=== PATIENT | female | born 1935 ===

== ENCOUNTER 2018-10-03 21:49 | Inpatient (IN) ==
[2018-10-03] MEDS ORDERED: ONDANSETRON 4 MG/2 ML VIAL ONE (22:21)
[2018-10-03] MEDS ORDERED: LORazepam 2 MG/1 ML VIAL IV STA (23:06)
[2018-10-03 23:19] LABS: Basophils # 0.1 10*3/uL (0.0-0.2); Basophils % 0.5 % (0.0-0.8); Eosinophils # 0.1 10*3/uL (0.0-0.87); Eosinophils % 0.6 % (0.00-10.9); Hematocrit 33.4 VOL% (35.7-47.0); Hemoglobin 11.1 GM/DL (12.0-16.0); Immature Granulocytes % 0.8 %; Immature Granulocytes Absolute 0.08 #; Lymphocytes # 2.6 10*3/uL (1.4-4.0); Mean Corpuscular HGB Conc 33.2 GM/DL (32-36); Mean Corpuscular Volume 87.9 FL (87-102); Mean Platelet Volume 9.1 FL (9.6-12.0); Monocytes % 14.9 % (1.7-12.7); Neutrophils % 56.2 % (38.7-73.9); Platelet Count 342 T/CUMM (130-400); Red Cell Distribution Width 12.5 % (9.3-17.3); White Blood Count 9.8 T/CUMM (4-12)
[2018-10-03 23:33] LABS: PT Patient Result 11.3 SECS; Partial Thromboplastin Time 24.5 SECS (0-40)
[2018-10-03 23:42] LABS: Albumin 3.6 G/DL (3.4-5.0); Bilirubin,Total 0.9 MG/DL (0.2-1.0); Calcium 8.8 MG/DL (8.5-10.1); Osmolality,Calculated 240.3 MOS/KG (273-304); Total Protein 7.9 G/DL (6.4-8.3)
[2018-10-03] MEDS ORDERED: MAGNESIUM SULF RIDER 2 GM in PREMIX 1 EACH IV STA (23:50)
[2018-10-04] MEDS ORDERED: HYDROCORTISONE 100 MG VIAL IV STA (00:36)
[2018-10-04] MEDS ORDERED: PIPERACILLIN/TAZOBACTAM 3,375 MG in SODIUM CHLORIDE 0.9% 100 ML IV STA (00:37)
[2018-10-04] MEDS ORDERED: HYDROmorphone 2 MG/1 ML VIAL ONE (02:15)
[2018-10-04] MEDS ORDERED: ONDANSETRON 4 MG/2 ML VIAL ONE (02:15)
[2018-10-04] MEDS ORDERED: ONDANSETRON 4 MG/2 ML VIAL IV ONE (02:37)
[2018-10-04] MEDS ORDERED: HYDROmorphone 2 MG/1 ML VIAL IV STA (02:39)
[2018-10-04] MEDS ORDERED: LACTULOSE 20 GM/30 ML UDCUP PO PRN (03:46)
[2018-10-04] MEDS ORDERED: MORPHINE 4 MG/1 ML VIAL IV PRN (03:46)
[2018-10-04] MEDS: SODIUM CHLORIDE 0.9% 1,000 ML IV SCH ×4 (06:05→21:02)
[2018-10-04 06:25] LABS: Basophils % 0.3 % (0.0-0.8); Eosinophils % 0.3 % (0.00-10.9); Hematocrit 31.3 VOL% (35.7-47.0); Hemoglobin 10.7 GM/DL (12.0-16.0); Immature Granulocytes % 0.8 %; Immature Granulocytes Absolute 0.06 #; Lymphocytes % 14.1 % (21.3-54.2); Mean Corpuscular HGB Conc 34.2 GM/DL (32-36); Mean Corpuscular Volume 86.2 FL (87-102); Mean Platelet Volume 9.8 FL (9.6-12.0); Monocytes % 7.7 % (1.7-12.7); Neutrophils % 76.8 % (38.7-73.9); Platelet Count 304 T/CUMM (130-400); Red Blood Count 3.63 MC/CUMM (3.8-5.5); Red Cell Distribution Width 12.3 % (9.3-17.3); White Blood Count 7.1 T/CUMM (4-12)
[2018-10-04 06:56] LABS: Albumin 3.2 G/DL (3.4-5.0); Bilirubin,Total 1.2 MG/DL (0.2-1.0); Calcium 9.1 MG/DL (8.5-10.1); Osmolality,Calculated 243.2 MOS/KG (273-304); Total Protein 7.1 G/DL (6.4-8.3)
[2018-10-04] MEDS: ONDANSETRON 4 MG/2 ML VIAL IV PRN (07:39)
[2018-10-04] MEDS ORDERED: PANTOPRAZOLE 40 MG VIAL IV SCH (09:00)
[2018-10-04] MEDS ORDERED: hydroCHLOROthiazide 25 MG TABLET PO SCH (09:00)
[2018-10-04] MEDS ORDERED: DOCUSATE SODIUM 100 MG CAPSULE PO SCH (09:00)
[2018-10-04] MEDS: PANTOPRAZOLE 40 MG TABLET PO SCH (09:25)
[2018-10-04] MEDS: POTASSIUM CHLORIDE 10 MEQ TABLET PO SCH (09:25)
[2018-10-04] MEDS: ENOXAPARIN 40 MG/0.4 ML SYRINGE SUBCUT SCH (09:30)
[2018-10-04 09:42] LABS: Thyroid Stimulating Hormone 0.762 uIU/ml (0.358-3.74)
[2018-10-04] MEDS: PIPERACILLIN/TAZOBACTAM 3,375 MG in SODIUM CHLORIDE 0.9% 100 ML IV SCH ×2 (12:27→18:18)
[2018-10-04 17:20] LABS: Calcium 9.1 MG/DL (8.5-10.1); Osmolality,Calculated 243.9 MOS/KG (273-304)
[2018-10-04] MEDS: SIMVASTATIN 20 MG TABLET PO SCH (21:03)
[2018-10-05] MEDS: PIPERACILLIN/TAZOBACTAM 3,375 MG in SODIUM CHLORIDE 0.9% 100 ML IV SCH ×3 (02:20→17:37)
[2018-10-05] MEDS: SODIUM CHLORIDE 0.9% 1,000 ML IV SCH (02:20)
[2018-10-05 06:43] LABS: Calcium 8.6 MG/DL (8.5-10.1); Osmolality,Calculated 255.1 MOS/KG (273-304)
[2018-10-05] MEDS: ENOXAPARIN 40 MG/0.4 ML SYRINGE SUBCUT SCH (08:50)
[2018-10-05] MEDS: PANTOPRAZOLE 40 MG TABLET PO SCH (08:51)
[2018-10-05] MEDS: POTASSIUM CHLORIDE 10 MEQ TABLET PO SCH (08:51)
[2018-10-05] MEDS: POLYETHYLENE GLYCOL POWDER 17 GM PACK PO SCH (08:51)
[2018-10-05] MEDS: ONDANSETRON 4 MG TABLET PO PRN (14:32)
[2018-10-05] MEDS: SIMVASTATIN 20 MG TABLET PO SCH (21:52)
[2018-10-06] MEDS: ONDANSETRON 4 MG/2 ML VIAL IV PRN ×3 (00:42→17:17)
[2018-10-06] MEDS: PIPERACILLIN/TAZOBACTAM 3,375 MG in SODIUM CHLORIDE 0.9% 100 ML IV SCH ×3 (01:54→17:18)
[2018-10-06] MEDS: SODIUM CHLORIDE 0.9% 1,000 ML IV SCH ×3 (07:19→23:30)
[2018-10-06] MEDS: PANTOPRAZOLE 40 MG TABLET PO SCH (09:27)
[2018-10-06] MEDS: POTASSIUM CHLORIDE 10 MEQ TABLET PO SCH (09:27)
[2018-10-06] MEDS: ENOXAPARIN 40 MG/0.4 ML SYRINGE SUBCUT SCH (09:28)
[2018-10-06] MEDS: POLYETHYLENE GLYCOL POWDER 17 GM PACK PO SCH (09:29)
[2018-10-06] MEDS: PROMETHAZINE 25 MG TABLET PO PRN (12:31)
[2018-10-06 13:25] LABS: Apearance,Urine CLEAR (Clear); Bilirubin,Urine Negative (Negative); Blood, Urine Small mg/dL (Negative); Glucose,Urine (UA) Negative (Negative); Ketones,Urine Negative (Negative); Nitrite,Urine Negative (Negative); Protein,Urine Negative; RBC,Urine <1 /HPF (0-4); Squamous Epithelial Cell,Urine Occasional /HPF (0-10); Urine Color Yellow (Yellow); Urine Specific Gravity 1.009 (1.001-1.035)
[2018-10-06] MEDS: POTASSIUM CHLORIDE RIDER 10 MEQ in PREMIX 1 EACH IV PRN ×3 (14:50→23:20)
[2018-10-06] MEDS: BISACODYL 10 MG SUPP RECTAL PRN (14:51)
[2018-10-06] MEDS: SIMVASTATIN 20 MG TABLET PO SCH (23:03)
[2018-10-07] MEDS: ONDANSETRON 4 MG TABLET PO PRN ×2 (01:55→09:03)
[2018-10-07] MEDS: PIPERACILLIN/TAZOBACTAM 3,375 MG in SODIUM CHLORIDE 0.9% 100 ML IV SCH ×3 (03:15→17:08)
[2018-10-07] MEDS: BISACODYL 10 MG SUPP RECTAL PRN (06:04)
[2018-10-07 07:41] LABS: Osmolality,Calculated 270.8 MOS/KG (273-304)
[2018-10-07] MEDS: ENOXAPARIN 40 MG/0.4 ML SYRINGE SUBCUT SCH (09:02)
[2018-10-07] MEDS: POLYETHYLENE GLYCOL POWDER 17 GM PACK PO SCH (09:02)
[2018-10-07] MEDS: PANTOPRAZOLE 40 MG TABLET PO SCH (09:03)
[2018-10-07] MEDS: POTASSIUM CHLORIDE 10 MEQ TABLET PO SCH (09:03)
[2018-10-07] MEDS: ONDANSETRON 4 MG/2 ML VIAL IV PRN ×2 (15:15→21:23)
[2018-10-07] MEDS: SIMVASTATIN 20 MG TABLET PO SCH (21:04)
[2018-10-07] MEDS: SODIUM CHLORIDE 0.9% 1,000 ML IV SCH (21:05)
[2018-10-08] MEDS: PIPERACILLIN/TAZOBACTAM 3,375 MG in SODIUM CHLORIDE 0.9% 100 ML IV SCH ×3 (02:08→17:17)
[2018-10-08] MEDS: POLYETHYLENE GLYCOL POWDER 17 GM PACK PO SCH (08:42)
[2018-10-08] MEDS: ENOXAPARIN 40 MG/0.4 ML SYRINGE SUBCUT SCH (08:42)
[2018-10-08] MEDS: PANTOPRAZOLE 40 MG TABLET PO SCH (08:42)
[2018-10-08] MEDS: POTASSIUM CHLORIDE 10 MEQ TABLET PO SCH (08:42)
[2018-10-08] MEDS: ONDANSETRON 4 MG/2 ML VIAL IV PRN (18:06)
[2018-10-08] MEDS ORDERED: methylPREDNISolone SOD SUC 40 MG/1 ML VIAL IV ONE (19:47)
[2018-10-08] MEDS: MECLIZINE 25 MG TABLET PO PRN (20:08)
[2018-10-08] MEDS: ACETAMINOPHEN 325 MG TABLET PO PRN (20:08)
[2018-10-08] MEDS: SIMVASTATIN 20 MG TABLET PO SCH (20:08)
[2018-10-08] MEDS: PROMETHAZINE 25 MG TABLET PO PRN (22:59)
[2018-10-09] MEDS: PIPERACILLIN/TAZOBACTAM 3,375 MG in SODIUM CHLORIDE 0.9% 100 ML IV SCH ×3 (02:29→18:04)
[2018-10-09 04:52] LABS: Basophils % 0.1 % (0.0-0.8); Hematocrit 34.8 VOL% (35.7-47.0); Hemoglobin 11.1 GM/DL (12.0-16.0); Immature Granulocytes % 0.4 %; Immature Granulocytes Absolute 0.03 #; Lymphocytes # 0.8 10*3/uL (1.4-4.0); Mean Corpuscular HGB Conc 31.9 GM/DL (32-36); Mean Corpuscular Volume 91.3 FL (87-102); Monocytes % 2.6 % (1.7-12.7); Neutrophils % 85.9 % (38.7-73.9); Platelet Count 350 T/CUMM (130-400); Red Blood Count 3.81 MC/CUMM (3.8-5.5); Red Cell Distribution Width 13.3 % (9.3-17.3); White Blood Count 7.2 T/CUMM (4-12)
[2018-10-09 05:11] LABS: Albumin 2.8 G/DL (3.4-5.0); Bilirubin,Total 1.2 MG/DL (0.2-1.0); Calcium 9.7 MG/DL (8.5-10.1); Osmolality,Calculated 272.8 MOS/KG (273-304); Total Protein 7.3 G/DL (6.4-8.3)
[2018-10-09] MEDS: ONDANSETRON 4 MG/2 ML VIAL IV PRN (06:10)
[2018-10-09] MEDS: methylPREDNISolone SOD SUC 40 MG/1 ML VIAL IV SCH ×2 (09:09→21:03)
[2018-10-09] MEDS: ENOXAPARIN 40 MG/0.4 ML SYRINGE SUBCUT SCH (09:10)
[2018-10-09] MEDS: DICYCLOMINE 10 MG CAPSULE PO SCH ×3 (09:11→21:03)
[2018-10-09] MEDS: ONDANSETRON 4 MG TABLET PO PRN (09:11)
[2018-10-09] MEDS: POTASSIUM CHLORIDE 10 MEQ TABLET PO SCH (09:11)
[2018-10-09] MEDS: POLYETHYLENE GLYCOL POWDER 17 GM PACK PO SCH (09:12)
[2018-10-09] MEDS: MECLIZINE 25 MG TABLET PO PRN ×2 (09:12→18:22)
[2018-10-09] MEDS: PANTOPRAZOLE 40 MG TABLET PO SCH (09:12)
[2018-10-09] MEDS: SODIUM CHLORIDE 0.9% 1,000 ML IV SCH (15:03)
[2018-10-09] MEDS: SIMVASTATIN 20 MG TABLET PO SCH (21:03)
[2018-10-10] MEDS: PIPERACILLIN/TAZOBACTAM 3,375 MG in SODIUM CHLORIDE 0.9% 100 ML IV SCH ×3 (03:16→21:42)
[2018-10-10 04:48] LABS: Basophils % 0.3 % (0.0-0.8); Hematocrit 33.4 VOL% (35.7-47.0); Hemoglobin 10.6 GM/DL (12.0-16.0); Immature Granulocytes % 0.8 %; Immature Granulocytes Absolute 0.07 #; Lymphocytes # 1.2 10*3/uL (1.4-4.0); Lymphocytes % 13.2 % (21.3-54.2); Mean Corpuscular HGB Conc 31.7 GM/DL (32-36); Mean Corpuscular Volume 91.5 FL (87-102); Mean Platelet Volume 9.2 FL (9.6-12.0); Monocytes % 7.6 % (1.7-12.7); Neutrophils % 78.1 % (38.7-73.9); Platelet Count 370 T/CUMM (130-400); Red Blood Count 3.65 MC/CUMM (3.8-5.5); Red Cell Distribution Width 13.6 % (9.3-17.3); White Blood Count 9.2 T/CUMM (4-12)
[2018-10-10 05:16] LABS: Albumin 2.8 G/DL (3.4-5.0); Bilirubin,Total 1.3 MG/DL (0.2-1.0); Calcium 9.5 MG/DL (8.5-10.1); Osmolality,Calculated 277.5 MOS/KG (273-304); Total Protein 7.2 G/DL (6.4-8.3)
[2018-10-10] MEDS ORDERED: hydrALAZINE 20 MG/1 ML VIAL ONE (09:42)
[2018-10-10] MEDS ORDERED: PROPOFOL 200 MG/20 ML VIAL IV ONE (09:42)
[2018-10-10] MEDS: DICYCLOMINE 10 MG CAPSULE PO SCH (10:20)
[2018-10-10] MEDS: POLYETHYLENE GLYCOL POWDER 17 GM PACK PO SCH (10:20)
[2018-10-10] MEDS: POTASSIUM CHLORIDE 10 MEQ TABLET PO SCH (10:20)
[2018-10-10] MEDS: PANTOPRAZOLE 40 MG TABLET PO SCH ×2 (10:21→21:39)
[2018-10-10] MEDS: methylPREDNISolone SOD SUC 40 MG/1 ML VIAL IV SCH ×2 (11:06→21:39)
[2018-10-10] MEDS ORDERED: LACTATED RINGERS 1,000 ML IV SCH (12:00)
[2018-10-10] MEDS ORDERED: ONDANSETRON 4 MG/2 ML VIAL ONE (12:21)
[2018-10-10] MEDS: ONDANSETRON 4 MG/2 ML VIAL IV PRN (12:30)
[2018-10-10] MEDS: SIMVASTATIN 20 MG TABLET PO SCH (21:38)
[2018-10-10] MEDS: PROMETHAZINE 25 MG TABLET PO PRN (21:38)
[2018-10-11] MEDS: PIPERACILLIN/TAZOBACTAM 3,375 MG in SODIUM CHLORIDE 0.9% 100 ML IV SCH (04:34)
[2018-10-11 05:04] LABS: Basophils % 0.1 % (0.0-0.8); Eosinophils % 0.1 % (0.00-10.9); Hematocrit 32.9 VOL% (35.7-47.0); Hemoglobin 10.9 GM/DL (12.0-16.0); Immature Granulocytes % 0.7 %; Immature Granulocytes Absolute 0.05 #; Lymphocytes # 0.8 10*3/uL (1.4-4.0); Lymphocytes % 11.2 % (21.3-54.2); Mean Corpuscular HGB Conc 33.1 GM/DL (32-36); Mean Corpuscular Volume 89.9 FL (87-102); Mean Platelet Volume 9.1 FL (9.6-12.0); Monocytes % 4.7 % (1.7-12.7); Neutrophils % 83.2 % (38.7-73.9); Platelet Count 368 T/CUMM (130-400); Red Blood Count 3.66 MC/CUMM (3.8-5.5); Red Cell Distribution Width 13.5 % (9.3-17.3); White Blood Count 7.1 T/CUMM (4-12)
[2018-10-11 05:37] LABS: Calcium 9.1 MG/DL (8.5-10.1); Osmolality,Calculated 282.3 MOS/KG (273-304)
[2018-10-11 05:40] LABS: Albumin 2.8 G/DL (3.4-5.0); Bilirubin,Total 0.5 MG/DL (0.2-1.0); Calcium 9.1 MG/DL (8.5-10.1); Osmolality,Calculated 279.5 MOS/KG (273-304); Total Protein 6.7 G/DL (6.4-8.3)
[2018-10-11] MEDS: ONDANSETRON 4 MG/2 ML VIAL IV PRN (07:42)
[2018-10-11] MEDS: POLYETHYLENE GLYCOL POWDER 17 GM PACK PO SCH (08:57)
[2018-10-11] MEDS: MECLIZINE 25 MG TABLET PO PRN (08:58)
[2018-10-11] MEDS: POTASSIUM CHLORIDE 10 MEQ TABLET PO SCH (08:58)
[2018-10-11] MEDS: PANTOPRAZOLE 40 MG TABLET PO SCH (08:58)
[2018-10-11] MEDS: SODIUM CHLORIDE 0.9% 1,000 ML IV SCH ×3 (09:01→20:29)
[2018-10-11] MEDS: PROMETHAZINE 25 MG TABLET PO PRN (09:57)
[2018-10-11] MEDS: ACETAMINOPHEN 325 MG TABLET PO PRN (09:58)
[2018-10-11] MEDS ORDERED: cloNIDine 0.1 MG TABLET PO ONE (13:00)
[2018-10-11] MEDS ORDERED: TUBERCULIN SKIN TEST 0.1 ML SYRINGE INTRADERM ONE (15:00)
[2018-10-11] MEDS: SUCRALFATE 1 GM/10 ML UDCUP PO SCH ×2 (15:33→20:22)
[2018-10-11] MEDS: SIMVASTATIN 20 MG TABLET PO SCH (20:21)
[2018-10-11] MEDS: LANSOPRAZOLE ODT 30 MG TABLET PO SCH (20:22)
[2018-10-11] MEDS ORDERED: cloNIDine 0.1 MG TABLET PO SCH (21:00)
[2018-10-12] MEDS: ACETAMINOPHEN 325 MG TABLET PO PRN ×2 (00:07→08:31)
[2018-10-12 05:35] LABS: Basophils # 0.1 10*3/uL (0.0-0.2); Basophils % 0.8 % (0.0-0.8); Eosinophils # 0.1 10*3/uL (0.0-0.87); Eosinophils % 1.4 % (0.00-10.9); Hematocrit 33.3 VOL% (35.7-47.0); Hemoglobin 10.8 GM/DL (12.0-16.0); Immature Granulocytes % 1.2 %; Immature Granulocytes Absolute 0.09 #; Lymphocytes # 2.5 10*3/uL (1.4-4.0); Lymphocytes % 32.9 % (21.3-54.2); Mean Corpuscular HGB Conc 32.4 GM/DL (32-36); Mean Corpuscular Volume 90.5 FL (87-102); Monocytes % 10.1 % (1.7-12.7); Neutrophils % 53.6 % (38.7-73.9); Platelet Count 356 T/CUMM (130-400); Red Blood Count 3.68 MC/CUMM (3.8-5.5); Red Cell Distribution Width 13.7 % (9.3-17.3); White Blood Count 7.7 T/CUMM (4-12)
[2018-10-12 05:52] LABS: Osmolality,Calculated 280.3 MOS/KG (273-304)
[2018-10-12] MEDS: LANSOPRAZOLE ODT 30 MG TABLET PO SCH (08:31)
[2018-10-12] MEDS: POTASSIUM CHLORIDE 10 MEQ TABLET PO SCH (08:31)
[2018-10-12] MEDS: POLYETHYLENE GLYCOL POWDER 17 GM PACK PO SCH (08:31)
[2018-10-12] MEDS: SODIUM CHLORIDE 0.9% 1,000 ML IV SCH (10:37)
[2018-10-12] MEDS ORDERED: cloNIDine 0.1 MG TABLET PO ONE (11:21)
[2018-10-12] MEDS: SUCRALFATE 1 GM/10 ML UDCUP PO SCH ×2 (11:33→11:35)
[2018-10-12 11:50] VITALS: BP 178/97
== END 2018-10-12 15:00 | disposition home health service (06) | DRG 384 ==
LOC: N.ED 21:49 → N.EDINP 10-04 00:37 → N.TELEN 10-04 02:52 → N.2E 10-09 11:52
PROVIDERS: ADMIT Family Medicine; ATTEND Family Medicine

== ENCOUNTER 2018-10-14 12:49 | Observation (INO) ==
[2018-10-14 13:40] LABS: Basophils % 0.2 % (0.0-0.8); Eosinophils # 0.1 10*3/uL (0.0-0.87); Eosinophils % 1.6 % (0.00-10.9); Hematocrit 37.7 VOL% (35.7-47.0); Hemoglobin 12.6 GM/DL (12.0-16.0); Immature Granulocytes Absolute 0.08 #; Lymphocytes # 1.9 10*3/uL (1.4-4.0); Lymphocytes % 22.9 % (21.3-54.2); Mean Corpuscular HGB Conc 33.4 GM/DL (32-36); Mean Corpuscular Volume 90.2 FL (87-102); Mean Platelet Volume 8.8 FL (9.6-12.0); Monocytes % 10.8 % (1.7-12.7); Neutrophils % 63.5 % (38.7-73.9); Platelet Count 399 T/CUMM (130-400); Red Blood Count 4.18 MC/CUMM (3.8-5.5); Red Cell Distribution Width 14.2 % (9.3-17.3); White Blood Count 8.1 T/CUMM (4-12)
[2018-10-14 14:02] LABS: Albumin 3.5 G/DL (3.4-5.0); Bilirubin,Total 0.6 MG/DL (0.2-1.0); Calcium 9.7 MG/DL (8.5-10.1); Osmolality,Calculated 273.7 MOS/KG (273-304); Total Protein 7.5 G/DL (6.4-8.3)
[2018-10-14] MEDS ORDERED: MORPHINE 4 MG/1 ML VIAL IV STA (14:47)
[2018-10-14] MEDS ORDERED: ONDANSETRON 4 MG/2 ML VIAL IV STA (14:47)
[2018-10-14] MEDS ORDERED: METOPROLOL TARTRATE 5 MG/5 ML VIAL IV STA (16:10)
[2018-10-14] MEDS ORDERED: hydrALAZINE 20 MG/1 ML VIAL IV STA (16:11)
[2018-10-14] MEDS ORDERED: ONDANSETRON 4 MG/2 ML VIAL IV PRN (16:15)
[2018-10-14] MEDS ORDERED: ACETAMINOPHEN 325 MG TABLET PO PRN (16:15)
[2018-10-14] MEDS ORDERED: NITROGLYCERIN SL 0.4 MG TABLET SL PRN (16:18)
[2018-10-14] MEDS: SODIUM CHLORIDE 0.45% 1,000 ML IV SCH (17:55)
[2018-10-14] MEDS: DOCUSATE SODIUM 100 MG CAPSULE PO SCH (20:10)
[2018-10-14] MEDS: SIMVASTATIN 20 MG TABLET PO SCH (20:10)
[2018-10-14] MEDS: ENOXAPARIN 30 MG/0.3 ML SYRINGE SUBCUT SCH (20:10)
[2018-10-14] MEDS: SUCRALFATE 1 GM/10 ML UDCUP PO SCH (20:45)
[2018-10-14 20:55] LABS: Apearance,Urine CLEAR (Clear); Bacteria,Urine Occasional /HPF (Few); Bilirubin,Urine Negative (Negative); Blood, Urine Negative (Negative); Glucose,Urine (UA) Negative (Negative); Hyaline Casts,Urine 1 /LPF (0-3); Ketones,Urine Negative (Negative); Mucus,Urine Occasional /LPF (Occasional); Nitrite,Urine Negative (Negative); Protein,Urine Negative; RBC,Urine 1 /HPF (0-4); Squamous Epithelial Cell,Urine Occasional /HPF (0-10); Urine Color Yellow (Yellow); Urine Specific Gravity 1.025 (1.001-1.035); Urine Urobilinogen < 2.0 EU/DL (0.2-1.0); WBC,Urine <1 /HPF (0-6)
[2018-10-15] MEDS: SUCRALFATE 1 GM/10 ML UDCUP PO SCH ×4 (07:31→20:50)
[2018-10-15] MEDS: hydroCHLOROthiazide 25 MG TABLET PO SCH (08:26)
[2018-10-15] MEDS: DOCUSATE SODIUM 100 MG CAPSULE PO SCH ×2 (08:26→20:50)
[2018-10-15] MEDS: BENAZEPRIL 10 MG TABLET PO SCH (08:26)
[2018-10-15] MEDS: POTASSIUM CHLORIDE 10 MEQ TABLET PO SCH (08:26)
[2018-10-15] MEDS: amLODIPine 10 MG TABLET PO SCH (08:26)
[2018-10-15] MEDS ORDERED: PSEUDOEPHEDRINE 30 MG TABLET PO PRN (08:38)
[2018-10-15] MEDS ORDERED: PANTOPRAZOLE 40 MG TABLET PO SCH (09:00)
[2018-10-15] MEDS: MECLIZINE 25 MG TABLET PO PRN ×2 (10:23→19:32)
[2018-10-15] MEDS: LANSOPRAZOLE ODT 30 MG TABLET PO SCH ×2 (10:23→20:50)
[2018-10-15] MEDS: GABAPENTIN 100 MG CAPSULE PO SCH ×2 (10:23→20:51)
[2018-10-15] MEDS: ASPIRIN EC 81 MG TABLET PO SCH (10:23)
[2018-10-15] MEDS: methylPREDNISolone SOD SUC 40 MG/1 ML VIAL IV SCH ×2 (10:24→19:32)
[2018-10-15] MEDS: METOPROLOL TARTRATE 25 MG TABLET PO SCH ×2 (12:48→20:51)
[2018-10-15] MEDS: SODIUM CHLORIDE 0.45% 1,000 ML IV SCH ×2 (16:28→19:33)
[2018-10-15] MEDS: SIMVASTATIN 20 MG TABLET PO SCH (20:50)
[2018-10-15] MEDS: ENOXAPARIN 30 MG/0.3 ML SYRINGE SUBCUT SCH (20:50)
[2018-10-16] MEDS: methylPREDNISolone SOD SUC 40 MG/1 ML VIAL IV SCH ×2 (02:52→10:36)
[2018-10-16 04:21] LABS: Basophils % 0.2 % (0.0-0.8); Hemoglobin 11.2 GM/DL (12.0-16.0); Immature Granulocytes % 0.9 %; Immature Granulocytes Absolute 0.05 #; Lymphocytes # 0.7 10*3/uL (1.4-4.0); Lymphocytes % 13.5 % (21.3-54.2); Mean Corpuscular HGB Conc 32.9 GM/DL (32-36); Mean Corpuscular Volume 90.2 FL (87-102); Mean Platelet Volume 9.1 FL (9.6-12.0); Monocytes % 5.9 % (1.7-12.7); Neutrophils % 79.5 % (38.7-73.9); Platelet Count 367 T/CUMM (130-400); Red Blood Count 3.77 MC/CUMM (3.8-5.5); Red Cell Distribution Width 14.3 % (9.3-17.3); White Blood Count 5.4 T/CUMM (4-12)
[2018-10-16 04:38] LABS: Calcium 9.5 MG/DL (8.5-10.1)
[2018-10-16 04:43] LABS: Bilirubin,Total 0.9 MG/DL (0.2-1.0); Calcium 9.7 MG/DL (8.5-10.1); Osmolality,Calculated 272.1 MOS/KG (273-304); Total Protein 6.7 G/DL (6.4-8.3)
[2018-10-16] MEDS: SUCRALFATE 1 GM/10 ML UDCUP PO SCH ×2 (07:31→12:02)
[2018-10-16 08:15] VITALS: BP 141/72
[2018-10-16] MEDS: ASPIRIN EC 81 MG TABLET PO SCH (08:54)
[2018-10-16] MEDS: hydroCHLOROthiazide 25 MG TABLET PO SCH (08:54)
[2018-10-16] MEDS: BENAZEPRIL 10 MG TABLET PO SCH (08:54)
[2018-10-16] MEDS: METOPROLOL TARTRATE 25 MG TABLET PO SCH (08:55)
[2018-10-16] MEDS: LANSOPRAZOLE ODT 30 MG TABLET PO SCH (08:55)
[2018-10-16] MEDS: DOCUSATE SODIUM 100 MG CAPSULE PO SCH (08:55)
[2018-10-16] MEDS: POTASSIUM CHLORIDE 10 MEQ TABLET PO SCH (08:56)
[2018-10-16] MEDS: GABAPENTIN 100 MG CAPSULE PO SCH (08:56)
[2018-10-16] MEDS: amLODIPine 10 MG TABLET PO SCH (08:58)
== END 2018-10-16 12:32 | disposition home or self-care (01) ==
LOC: N.EDINP 12:49 → N.ED 12:49 → N.TELEN 17:10
PROVIDERS: ADMIT Family Medicine; ATTEND Family Medicine